=== PATIENT | female | born 1965 | race Caucasian/White ===

== ENCOUNTER 2020-12-28 07:50 | Day surgery (SDC) | payer MEDICARE ==
[2020-12-28] MEDS ORDERED: Xylocaine-Mpf 2% 5 Ml Vial IJ ONE (07:51)
[2020-12-28] MEDS ORDERED: Depo-Medrol 40 MG/ML IM ONE (07:51)
[2020-12-28] MEDS ORDERED: DIPRIVAN 200 MG/20 ML IV ONE (09:00)
[2020-12-28] MEDS ORDERED: Ketamine HCl 50 MG/ML ONE (09:00)
--- NOTE | 2020-12-28 10:19 | XRAY ---
Indication: Bilateral L4-S1 MBB. Intraoperative fluoroscopy was provided for 8 seconds. Single digital spot image submitted for interpretation demonstrate posterior needle tips projecting over the expected left and right L4-S1 nerve roots. Correlate with intraoperative findings/report.
--- NOTE | 2020-12-28 12:13 | XRAY ---
8 seconds fluoroscopy time in surgery for bilateral L4-S1 MBB.
[2020-12-28] MEDS ORDERED: Lactated Ringers 1,000 ML IV ONE (14:03)
== END 2020-12-28 09:35 | disposition home or self-care (01) ==
LOC: SDC-PAIN 07:50
PROVIDERS: ATTEND Psychiatry & Neurology Pain Medicine
DX: M47.816 Spondylosis without myelopathy or radiculopathy, lumbar region (principal); E11.22 Type 2 diabetes mellitus with diabetic chronic kidney disease; I12.9 Hypertensive chronic kidney disease with stage 1 through stage 4 chronic kidney disease, or unspecified chronic kidney disease; N18.9 Chronic kidney disease, unspecified; J44.9 Chronic obstructive pulmonary disease, unspecified; K21.9 Gastro-esophageal reflux disease without esophagitis; K44.9 Diaphragmatic hernia without obstruction or gangrene; M10.9 Gout, unspecified; Z79.899 Other long term (current) drug therapy
CPT/HCPCS: 64493; 64494; 72020; 77002; 82947; J1030; J2704

== ENCOUNTER 2021-04-05 08:58 | Day surgery (SDC) | payer MEDICARE ==
[2021-04-05] MEDS ORDERED: Depo-Medrol 40 MG/ML IM ONE (08:59)
[2021-04-05] MEDS ORDERED: BUPIVACAINE 0.5% VIAL IJ ONE (08:59)
--- NOTE | 2021-04-05 10:58 | XRAY ---
Indication: Bilateral L4-S1 MBB. Intraoperative fluoroscopy provided for 11 seconds. Single digital spot image submitted for interpretation demonstrates posterior needle tips projecting over the expected left and right L4-S1 nerve roots. Correlate with intraoperative findings/report.
--- NOTE | 2021-04-05 11:01 | XRAY ---
11 seconds fluoroscopy time in surgery for bilateral L4-S1 MBB.
[2021-04-05] MEDS ORDERED: Lactated Ringers 1,000 ML IV ONE (15:27)
== END 2021-04-05 10:26 | disposition home or self-care (01) ==
LOC: SDC-PAIN 08:58
PROVIDERS: ATTEND Psychiatry & Neurology Pain Medicine
DX: M47.816 Spondylosis without myelopathy or radiculopathy, lumbar region (principal); I12.9 Hypertensive chronic kidney disease with stage 1 through stage 4 chronic kidney disease, or unspecified chronic kidney disease; E11.22 Type 2 diabetes mellitus with diabetic chronic kidney disease; N18.9 Chronic kidney disease, unspecified; J44.9 Chronic obstructive pulmonary disease, unspecified; K44.9 Diaphragmatic hernia without obstruction or gangrene; M10.9 Gout, unspecified; Z79.899 Other long term (current) drug therapy
CPT/HCPCS: 64493; 64494; 72020; 77002; 82947; J1030

== ENCOUNTER 2023-05-29 09:35 | Day surgery (SDC) | payer MEDICARE ==
[2023-05-29] MEDS ORDERED: Depo-Medrol 40 MG/ML IM ONE (09:36)
[2023-05-29] MEDS ORDERED: Sodium Chloride 0.9(Preservative Free) 10 ML IJ ONE (09:36)
[2023-05-29] MEDS ORDERED: LIDOCAINE HCL 1% 50 MG/5 ML VL PF IJ ONE (09:36)
[2023-05-29] MEDS ORDERED: DIPRIVAN 200 MG/20 ML IV ONE (11:21)
[2023-05-29] MEDS ORDERED: Lactated Ringers 1,000 ML IV ONE (13:10)
--- NOTE | 2023-05-29 18:39 | XRAY ---
Indication: Lumbar DORY. Intraoperative fluoroscopy provided for 20 seconds. 3 digital spot image submitted for interpretation demonstrates posterior needle tip projecting just posterior to lumbosacral junction. Small amount of contrast injected for needle tip placement. Correlate with intraoperative findings/report.
--- NOTE | 2023-05-29 18:56 | XRAY ---
20 seconds of fluoroscopy was used in surgery for a lumbar DORY.
== END 2023-05-29 11:55 | disposition home or self-care (01) ==
LOC: SDC-PAIN 09:35
PROVIDERS: ATTEND Psychiatry & Neurology Pain Medicine
DX: M54.16 Radiculopathy, lumbar region (principal); E11.9 Type 2 diabetes mellitus without complications; Z79.899 Other long term (current) drug therapy
CPT/HCPCS: 62323; 72100; 77003; J1030; J2001; J2704; Q9966

== ENCOUNTER 2023-07-03 09:49 | Day surgery (SDC) | payer MEDICARE ==
[2023-07-03] MEDS ORDERED: XYLOCAINE 1% HCL 20 ML MDV IJ ONE (09:50)
[2023-07-03] MEDS ORDERED: Depo-Medrol 40 MG/ML IM ONE (09:50)
[2023-07-03] MEDS ORDERED: BUPIVACAINE 0.5% VIAL IJ ONE (09:50)
[2023-07-03] MEDS ORDERED: DIPRIVAN 200 MG/20 ML IV ONE (11:35)
[2023-07-03] MEDS ORDERED: Lactated Ringers 1,000 ML IV ONE (12:28)
--- NOTE | 2023-07-03 12:54 | XRAY ---
Indication: Right shoulder and subacromial bursa injection. Intraoperative fluoroscopy provided for 16 seconds. 2 digital spot images submitted for interpretation demonstrates needle tip projecting over the right glenohumeral joint superiorly. Second needle tip subacromial. Small amount of contrast injected for both needle tip placement. Correlate with intraoperative findings/report.
--- NOTE | 2023-07-03 13:36 | XRAY ---
16 seconds of fluoroscopy was used in surgery for a right intra-articular shoulder and right subacromial bursa injection.
== END 2023-07-03 12:05 | disposition home or self-care (01) ==
LOC: SDC-PAIN 09:49
PROVIDERS: ATTEND Psychiatry & Neurology Pain Medicine
DX: M19.011 Primary osteoarthritis, right shoulder (principal); M75.51 Bursitis of right shoulder; E11.9 Type 2 diabetes mellitus without complications; Z79.899 Other long term (current) drug therapy
CPT/HCPCS: 20610; 73030; 77002; 82947; J1030; J2704; Q9966